=== PATIENT | female | born 2000 | race African-American/Black ===

== ENCOUNTER 2022-07-19 18:08 | Emergency (ER) | payer OTHER ==
[~2022-07-19] VITALS: Ht 149.9 cm; Wt 56.7 kg
[2022-07-19] MEDS ORDERED: PROCTOFOAM-HC F10 GM TOP (18:53)
[2022-07-19] MEDS ORDERED: DOCUSATE SODIU100 MG PO (18:53)
== END 2022-07-19 19:30 | disposition home or self-care (01) ==
LOC: ER 18:38
DX: K64.4 Residual hemorrhoidal skin tags (principal); K59.00 Constipation, unspecified
CPT/HCPCS: 99282